=== PATIENT | female | born 1990 | race Caucasian/White ===

== ENCOUNTER 2022-07-02 06:15 | Emergency (ER) | payer OTHER ==
[~2022-07-02] VITALS: Ht 154.9 cm; Wt 58.6 kg
[2022-07-02] MEDS ORDERED: PRIS1TAB PO (06:24)
[2022-07-02] MEDS ORDERED: BUSP15TA47 PO (06:24)
[2022-07-02] MEDS ORDERED: NS 1,000 ML IV ONE (07:05)
[2022-07-02] MEDS ORDERED: METOCLOPRAMIDE INJ 10MG/2ML VIAL IV ONE (07:05)
[2022-07-02 07:47] LABS: BASO # 0.1 10^3/uL (0.0-0.2); BASO % 0.5 % (0.0-1.0); EOS # 0.4 10^3/uL (0.0-0.5); EOS % 4.6 % (0.0-3.0); HEMATOCRIT 37.8 % (36.0-47.0); HEMOGLOBIN 12.9 g/dl (12.0-15.5); LYMPH % 10.9 % (24.0-44.0); MEAN CORPUSCULAR HEMOGLOBIN 32.5 pg (27.0-33.0); MEAN CORPUSCULAR HGB CONC 34.1 g/dl (32.0-36.5); MEAN CORPUSCULAR VOLUME 95.2 fl (80.0-96.0); MONO # 0.9 10^3/uL (0.0-0.8); MONO % 10.1 % (2.0-8.0); NEUTROPHILS # 6.8 10^3/uL (1.5-8.5); NEUTROPHILS % 73.6 % (36.0-66.0); PLATELET COUNT, AUTOMATED 261 10^3/uL (150-450); RED BLOOD COUNT 3.97 10^6/uL (4.00-5.40); WHITE BLOOD COUNT 9.3 10^3/uL (4.0-10.0)
[2022-07-02 08:01] LABS: LIPASE 51 U/L (12-53)
[2022-07-02 08:23] LABS: ALBUMIN 3.9 G/DL (3.2-5.2); ALKALINE PHOSPHATASE 48 U/L (46-116); ALT/SGPT 20 U/L (7.0-40); AST/SGOT 16 U/L (<34); BILIRUBIN,DIRECT 0.2 MG/DL (<0.4); BILIRUBIN,TOTAL 0.6 MG/DL (0.3-1.2); BLOOD UREA NITROGEN 10 MG/DL (9-23); CALCIUM LEVEL 8.4 MG/DL (8.5-10.1); CARBON DIOXIDE LEVEL 25 MMOL/L (20-31); CHLORIDE LEVEL 107 MMOL/L (98-107); CREATININE FOR GFR 0.65 MG/DL (0.55-1.30); GLOMERULAR FILTRATION RATE > 60.0 (>60); GLUCOSE, FASTING 80 MG/DL (60-100); HCG, SERUM QUANTITATIVE 142.6 MIU/ML (<4.2); MAGNESIUM LEVEL 1.7 MG/DL (1.8-2.4); POTASSIUM SERUM 3.7 MMOL/L (3.5-5.1); SODIUM LEVEL 138 MMOL/L (136-145); TOTAL PROTEIN 6.4 G/DL (5.7-8.2)
[2022-07-02] MEDS ORDERED: AZITHROMYCIN 250MG TABLET PO ONE (11:20)
[2022-07-02] MEDS ORDERED: AZIT500T5 PO (11:20)
[2022-07-02] MEDS ORDERED: REGL10TA6 PO (11:20)
[2022-07-02 11:36] VITALS: BP 133/68
== END 2022-07-02 11:54 | disposition home or self-care (01) ==
LOC: M ED 06:15
DX: A04.5 Campylobacter enteritis (principal)
CPT/HCPCS: 76801; 76817; 80047; 80048; 80076; 83690; 83735; 84702; 85025; 87507; 93976; 96374; 99284; J2765

== ENCOUNTER 2023-02-17 09:54 | Outpatient (CLI) | payer OTHER ==
[~2023-02-17] VITALS: Ht 157.5 cm; Wt 68.7 kg
[~2023-02-17 09:54] MED LIST: AZIT500T5 PO; BUSP15TA47 PO; PRIS1TAB PO; REGL10TA6 PO
[2023-02-17 10:11] VITALS: BP 96/70; O2SAT 99
[2023-02-17] MEDS ORDERED: PRENTAB9 PO (10:18)
[2023-02-17] MEDS ORDERED: TUMS500C PO (10:18)
[2023-02-17] MEDS ORDERED: ONDANSETRON 4MG 2ML VIAL IV PRN (10:25)
[2023-02-17] MEDS ORDERED: LR 1,000 ML IV SCH (10:25)
[2023-02-17 11:20] LABS: HEMATOCRIT 33.3 % (36.0-47.0); MEAN CORPUSCULAR VOLUME 93.8 fl (80.0-96.0); PLATELET COUNT, AUTOMATED 323 10^3/uL (150-450); RED BLOOD COUNT 3.55 10^6/uL (4.00-5.40); WHITE BLOOD COUNT 9.6 10^3/uL (4.0-10.0)
[2023-02-17 11:42] LABS: ALBUMIN 2.8 G/DL (3.2-5.2); ALKALINE PHOSPHATASE 142 U/L (46-116); ALT/SGPT 17 U/L (7.0-40); AST/SGOT 13 U/L (<34); BILIRUBIN,TOTAL 0.5 MG/DL (0.3-1.2); BLOOD UREA NITROGEN 9 MG/DL (9-23); CALCIUM LEVEL 9.3 MG/DL (8.5-10.1); CARBON DIOXIDE LEVEL 25 MMOL/L (20-31); CHLORIDE LEVEL 105 MMOL/L (98-107); CREATININE FOR GFR 0.67 MG/DL (0.55-1.30); GLOMERULAR FILTRATION RATE > 60.0 (>60); GLUCOSE, FASTING 105 MG/DL (60-100); POTASSIUM SERUM 4.2 MMOL/L (3.5-5.1); SODIUM LEVEL 139 MMOL/L (136-145); TOTAL PROTEIN 6.1 G/DL (5.7-8.2)
[2023-02-17 11:47] LABS: APPEARANCE, URINE CLOUDY (CLEAR); BACTERIA, URINE AUTO NEGATIVE (NEGATIVE); BILIRUBIN, URINE AUTO NEGATIVE (NEGATIVE); BLOOD, URINE BLOOD NEGATIVE (NEGATIVE); COLOR, URINE AMBER (YELLOW); GLUCOSE, URINE (UA) AUTO NEGATIVE (NEGATIVE); KETONE, URINE AUTO NEGATIVE (NEGATIVE); LEUKOCYTE ESTERASE, URINE AUTO 2+ (NEGATIVE); MUCUS, URINE MODERATE (NEGATIVE); NITRITE, URINE AUTO NEGATIVE (NEGATIVE); PROTEIN, URINE AUTO 2+ mg/dL (NEGATIVE); RBC, URINE AUTO 0 /HPF (0-3); SPECIFIC GRAVITY URINE AUTO 1.024 (1.002-1.035); SQUAMOUS EPITHELIAL CELL UR AU 27 /HPF (0-6); WBC, URINE AUTO 25 /HPF (0-3)
== END 2023-02-17 12:03 | disposition home or self-care (01) ==
LOC: M LDO 09:54
PROVIDERS: ATTEND Obstetrics & Gynecology Obstetrics
DX: O21.8 Other vomiting complicating pregnancy (principal); Z3A.37 37 weeks gestation of pregnancy
CPT/HCPCS: 36415; 59025; 80053; 81001; 85027; 87086; 96374; G0463; J2405

== ENCOUNTER 2023-02-28 21:49 | Inpatient (IN) | payer OTHER ==
[~2023-02-28] VITALS: Ht 157.5 cm; Wt 71.1 kg
[~2023-02-28 21:49] MED LIST changes: +PRENTAB9 PO; +TUMS500C PO
[2023-02-28 22:06] VITALS: BP 144/78
[2023-02-28] MEDS ORDERED: LIDOCAINE 1% MDV 20ML VIAL INFIL PRN (22:30)
[2023-02-28] MEDS ORDERED: OXYTOCIN DRIP 30 UNITS in IV 1 EA IV PRN (22:30)
[2023-02-28 23:01] LABS: HEMOGLOBIN 10.7 g/dl (12.0-15.5); MEAN CORPUSCULAR HEMOGLOBIN 30.7 pg (27.0-33.0); MEAN CORPUSCULAR HGB CONC 33.4 g/dl (32.0-36.5); PLATELET COUNT, AUTOMATED 386 10^3/uL (150-450); RED BLOOD COUNT 3.48 10^6/uL (4.00-5.40); WHITE BLOOD COUNT 12.7 10^3/uL (4.0-10.0)
[2023-02-28] MEDS ORDERED: OXYTOCIN DRIP 30 UNITS in IV 1 EA IV SCH (23:05)
[2023-03-01] VITALS (51 sets, daily range): BP systolic 95–148; BP diastolic 50–91; O2SAT 99–100
[2023-03-01] MEDS: LR 1,000 ML IV SCH ×2 (00:36→03:51)
[2023-03-01] MEDS ORDERED: PROMETHAZINE 25MG/ML 1ML VIAL IV ONE (01:00)
[2023-03-01] MEDS ORDERED: BUTORPHANOL 2 MG/ML 1ML VIAL IV ONE (01:00)
[2023-03-01] MEDS ORDERED: REFLB XX ONE (03:08)
[2023-03-01] MEDS ORDERED: FENTANYL 2MCG/ML ROPIVACAINE 0.2% IN 0.9% NACL 100ML IVBAG As Ordered ONE (03:10)
[2023-03-01] MEDS ORDERED: ePHEDrine SULFATE 25 MG/5 ML(5MG/ML) SYRINGE IVP PRN (03:20)
[2023-03-01] MEDS ORDERED: NALOXONE INJ 0.4MG/1ML VIAL IV PRN (03:20)
[2023-03-01] MEDS ORDERED: diphenhydrAMINE 50MG/ML VIAL IV PRN (03:20)
[2023-03-01] MEDS ORDERED: LR 500 ML IV PRN (03:20)
[2023-03-01] MEDS ORDERED: FENTANYL/ROPIVACAINE/NACL BAG 100 ML EPIDURAL SCH (03:20)
[2023-03-01] MEDS ORDERED: ONDANSETRON 4MG 2ML VIAL IV PRN (03:20)
[2023-03-01] MEDS ORDERED: EPIDURAL/PCA KEYS XX PRN (03:20)
[2023-03-01] MEDS ORDERED: RHOGAM 300MCG (1500IU) INJ IM SCH (08:35)
[2023-03-01] MEDS ORDERED: ACETAMINOPHEN TAB 650MG DOSE (2X325MG) PO PRN (08:35)
[2023-03-01] MEDS ORDERED: DOCUSATE SODIUM 100MG CAPSULE PO PRN (08:35)
[2023-03-01] MEDS ORDERED: DIBUCAINE 1% OINTMENT 30GM TOP PRN (08:35)
[2023-03-01] MEDS ORDERED: METHYLERGONOVINE MALEATE 0.2 MG TAB PO PRN (08:35)
[2023-03-01] MEDS: PRENATAL VITAMINS CHEWABLE TABLET PO SCH (09:00)
[2023-03-01] MEDS: IBUPROFEN 800 MG TAB PO PRN ×2 (11:54→19:52)
[2023-03-01] MEDS: ACETAMINOPHEN 500 MG TAB PO PRN ×2 (14:26→19:51)
[2023-03-01] MEDS ORDERED: HOME MED LIST COMPLETE! XX SCH (17:05)
[2023-03-02] MEDS: ACETAMINOPHEN 500 MG TAB PO PRN ×3 (05:13→18:28)
[2023-03-02] MEDS: IBUPROFEN 800 MG TAB PO PRN (05:14)
[2023-03-02 06:14] VITALS: BP 110/70; O2SAT 99
[2023-03-02] MEDS: PRENATAL VITAMINS CHEWABLE TABLET PO SCH (07:42)
[2023-03-02] MEDS: AMOXICILLIN SUSP 250MG/5ML 100ML BOTTLE (FOR INPATIENT ORDERS) PO SCH ×2 (13:58→21:03)
[2023-03-02] MEDS: IBUPROFEN 600MG TAB PO PRN ×2 (15:28→21:03)
[2023-03-02 18:00] VITALS: BP 112/64; O2SAT 98
[2023-03-03] MEDS: ACETAMINOPHEN 500 MG TAB PO PRN ×3 (00:05→14:11)
[2023-03-03] MEDS: IBUPROFEN 600MG TAB PO PRN ×2 (05:15→11:33)
[2023-03-03] MEDS: AMOXICILLIN SUSP 250MG/5ML 100ML BOTTLE (FOR INPATIENT ORDERS) PO SCH ×2 (05:15→14:11)
[2023-03-03 06:00] VITALS: BP 123/72; O2SAT 99
[2023-03-03] MEDS: PRENATAL VITAMINS CHEWABLE TABLET PO SCH (07:17)
[2023-03-03] MEDS ORDERED: MEASLES,MUMPS,RUBELLA VACCINE INJ (MMR-II) SC.IMMUN ONE (09:00)
== END 2023-03-03 14:30 | disposition home or self-care (01) | DRG 806 ==
LOC: M LDO 21:49 → M LDI 22:18 → M OBS 03-01 11:40
PROVIDERS: ADMIT Specialist; ATTEND Specialist
PROC: 10E0XZZ Delivery of Products of Conception, External Approach (ICD-10-PCS; principal; 2023-03-01)
PROC: 0HQ9XZZ Repair Perineum Skin, External Approach (ICD-10-PCS; 2023-03-01)
DX: O23.43 Unspecified infection of urinary tract in pregnancy, third trimester (principal); Z37.0 Single live birth; N39.0 Urinary tract infection, site not specified; O70.0 First degree perineal laceration during delivery; Z3A.38 38 weeks gestation of pregnancy